=== PATIENT | male | born 1965 | race Two or more races ===

== ENCOUNTER 2019-09-23 16:47 | Emergency (ER) | payer OTHER ==
[2019-09-23] MEDS ORDERED: Lidocaine 1% 30 ML SDV INJECT ONE (16:59)
[2019-09-23] MEDS ORDERED: Bacitracin Oint 1 GM U/D Packet TOP ONE (16:59)
--- NOTE | 2019-09-23 17:03 | EDM.PDOC ---
ED HPI GENERAL MEDICAL PROBLEM - General Chief Complaint: ENT Problem Stated Complaint: FELL AND HIT NOSE Time Seen by Provider: 09/23/19 16:50 Source of Information: Reports: Family (to translate for patient) History Limitations: Reports: Language Barrier - History of Present Illness INITIAL COMMENTS - FREE TEXT/NARRATIVE: This 53 yo male patient was brought to the ED by his son due to tripping on the rocks and hitting his nose. The patient has bleeding to the nose upon arrival in the ED. The patient reported through the son that he did not get knocked out. The patient denies any additional areas of concern or injury. Onset: Today Duration: Minutes: Location: Reports: Face Quality: Reports: Ache Severity: Mild Improves with: Reports: None Worsens with: Reports: None Context: Reports: Trauma (Ground level fall) Associated Symptoms: Reports: No Other Symptoms Nose Pain Score (Numeric/FACES): 4 - Related Data Allergies Allergy/AdvReac Type Severity Reaction Status Date / Time No Known Allergies Allergy Verified 09/23/19 16:55 ED ROS ENT - Review of Systems Review Of Systems: Comprehensive ROS is negative, except as noted in HPI. ED EXAM, ENT - Physical Exam Exam: See Below Exam Limited By: No Limitations General Appearance: Alert, WD/WN, Mild Distress Eye Exam: Bilateral Eye: EOMI, Normal Inspection, PERRL Ears: Normal External Exam, Normal Canal, Hearing Grossly Normal, Normal TMs Nose: Nasal Swelling, Active Bleeding (left side of external nose) Mouth/Throat: Normal Inspection, Normal Gums, Normal Lips, Normal Oropharynx, Normal Teeth Head: Facial Lacerations (to left side of nose with surrounding abrasion) Neck: Normal Inspection, Supple, Non-Tender, Full Range of Motion Respiratory/Chest: No Respiratory Distress, Lungs Clear, Normal Breath Sounds, No Accessory Muscle Use, Chest Non-Tender Cardiovascular: Normal Peripheral Pulses, Regular Rate, Rhythm, No Edema, No Gallop, No JVD, No Murmur, No Rub GI/Abdominal: Normal Bowel Sounds, Soft, Non-Tender, No Organomegaly, No Distention, No Abnormal Bruit, No Mass (Male) Exam: Deferred Rectal (Males) Exam: Deferred Back: Normal Inspection Extremities: Normal Inspection, Normal Range of Motion, Non-Tender, No Pedal Edema, Normal Capillary Refill Neurological: Alert, Oriented, CN II-XII Intact, Normal Cognition, Normal Gait, Normal Reflexes, No Motor/Sensory Deficits Psychiatric: Normal Affect, Normal Mood Skin: Wound/Incision (left side of nose) Lymphatic: No Adenopathy ED ENT PROCEDURES - Laceration/Wound Repair Medial Nose Lac/wound length in cm: 1.0 Appearance: Subcutaneous Anesthetic Type: Local Local Anesthesia - Lidocaine (Xylocaine): 1% Plain Local Anesthetic Volume: 2cc Skin Prep: Chlorhexidine (Hibiciens), Saline Exploration/Debridement/Repair: Wound Explored, No Foreign Material Found Suture Size: 5-0 # of Sutures: 3 Suture Type: Prolene, Interrupted, Simple Drain Placement: No Sterile Dressing Applied: Nurse Tetanus Status Addressed: Yes Complications: None Course - Vital Signs Last Recorded V/S: Last Vital Signs Temp 35.8 C L 09/23/19 16:55 Pulse 80 09/23/19 16:55 Resp 16 09/23/19 16:55 BP 148/103 H 09/23/19 17:14 Pulse Ox 99 09/23/19 16:55 - Orders/Labs/Meds Meds: Medications Discontinued Medications Generic Name Dose Route Start Last Admin Trade Name Mosheq PRN Reason Stop Dose Admin Bacitracin 1 dose 09/23/19 16:59 09/23/19 17:04 Bacitracin Oint 1 Gm TOP 09/23/19 17:00 1 dose ONETIME ONE Administration Lidocaine HCl 30 ml 09/23/19 16:59 09/23/19 17:04 Xylocaine-Mpf 1% INJECT 09/23/19 17:00 30 ml ONETIME ONE Administration Departure - Departure Time of Disposition: 18:22 Disposition: Home, Self-Care 01 Condition: Fair Clinical Impression: Nasal bone fracture Qualifiers: Encounter type: initial encounter Fracture type: closed Qualified Code(s): S02.2XXA - Fracture of nasal bones, initial encounter for closed fracture Laceration of nose Qualifiers: Encounter type: initial encounter Qualified Code(s): S01.21XA - Laceration without foreign body of nose, initial encounter - Discharge Information *PRESCRIPTION DRUG MONITORING PROGRAM REVIEWED*: Not Applicable *COPY OF PRESCRIPTION DRUG MONITORING REPORT IN PATIENT CIERA: Not Applicable Instructions: Sutures, Tawny, or Adhesive Wound Closure, [id number], Laceration Care, Adult, [id number], Nasal Fracture, [id number] Forms: ED Department Discharge Care Plan Goals: The patient was advised of the examination results during the visit. The laceration margins were well approximated during the visit. The patient should keep the area clean and dry over the next 24 hours. The patient should have the sutures removed in 5-7 days. The patient was given an oral dose of Keflex (500 mg) while in the ED and discharged with a script for Keflex (500 mg) #30 to take 1 by mouth 3 times per day for 10 days. If the patient has any additional symptoms or concerns, the patient should either return to the emergency department or follow-up with his primary care facility. Sepsis Event Note (ED) - Evaluation Sepsis Screening Result: No Definite Risk - Focused Exam Vital Signs: Vital Signs Temp Pulse Resp BP Pulse Ox 09/23/19 17:14 148/103 H 09/23/19 16:55 35.8 C L 80 16 99
--- NOTE | 2019-09-23 17:35 | CT ---
PROCEDURE INFORMATION: Exam: CT Maxillofacial Without Contrast Exam date and time: 09/23/2019 5:18 PM Age: 53 years old Clinical indication: Other: Fell face first; Additional info: Fell and hit face on rock TECHNIQUE: Imaging protocol: Computed tomography images of the face without contrast. Radiation optimization: All CT scans at this facility use at least one of these dose optimization techniques: automated exposure control; mA and/or kV adjustment per patient size (includes targeted exams where dose is matched to clinical indication); or iterative reconstruction. COMPARISON: No relevant prior studies available. FINDINGS: Orbits: Orbital floors, roofs, lateral chi and the lamina papyracea are intact. There is no retro-orbital emphysema or stranding/hemorrhage of intraconal fat. Globes are normal in contour and density. Bones/joints: Comminuted mildly displaced nasal bone fracture. Skull base, maxillae, zygomatic arches, pterygoid processes, hard palate, and mandible are intact. Sinuses: Normal. No air-fluid levels. Soft tissues: Subcutaneous emphysema at the bridge of the nose. IMPRESSION: Comminuted mildly displaced nasal bone fracture.
[2019-09-23] MEDS ORDERED: Cephalexin 500 MG Cap PO ONE (18:23)
== END 2019-09-23 18:35 | disposition home or self-care (01) ==
LOC: DL.ED 16:47
DX: S02.2XXA Fracture of nasal bones, initial encounter for closed fracture (principal); S01.21XA Laceration without foreign body of nose, initial encounter; W01.10XA Fall on same level from slipping, tripping and stumbling with subsequent striking against unspecified object, initial encounter
CPT/HCPCS: 12011; 70486; 99283; A9270; J2001